=== PATIENT | male | born 1975 | race Caucasian/White ===

== ENCOUNTER 2024-06-10 23:44 | Emergency (ER) | payer SELFPAY ==
[~2024-06-10] VITALS: Ht 165.1 cm; Wt 90.7 kg
[2024-06-11 01:02] LABS: BASOPHILS % 0.7 % (0.0-2.0); HEMATOCRIT. 46.9 % (42.0-52.0); HEMOGLOBIN. 15.5 g/dL (14.0-18.0); LYMPHOCYTES % 16.5 % (20.0-50.0); MEAN CORPUSCULAR HEMOGLOBIN 27.5 pg (28.0-32.0); MEAN CORPUSCULAR VOLUME 83.3 fL (80.0-94.0); MEAN PLATELET VOLUME 8.7 fl (7.4-10.4); MONOCYTES % 7.5 % (2.0-8.0); NEUTROPHILS % 72.3 % (40.0-76.0); PLATELET 321 x1000/uL (130-400); RED BLOOD CELL COUNT 5.63 mill/uL (4.7-6.1); WHITE BLOOD COUNT 8.9 x1000/uL (4.5-11.0)
[2024-06-11 01:09] LABS: CHLORIDE 102 mEq/L (98-107); POTASSIUM 3.3 mEq/L (3.5-5.1); SODIUM 140 mEq/L (136-145)
[2024-06-11 01:10] LABS: CARBON DIOXIDE 27 mEq/L (21-32)
[2024-06-11 01:11] LABS: CALCIUM 9.8 mg/dL (8.7-10.4)
[2024-06-11 01:15] LABS: CREATININE 1.1 mg/dL (0.6-1.3); GLUCOSE 164 mg/dL (70-105)
[2024-06-11 01:16] LABS: UREA NITROGEN BLOOD 15 mg/dL (9-23)
[2024-06-11 01:20] LABS: TROPONIN I HIGH SENSITIVITY 69 ng/L (3.0-53)
[2024-06-11] MEDS: ASPIRIN 325MG EC TABLET PO ONE (02:16)
[2024-06-11] MEDS ORDERED: DOCUSATE SODIUM 100MG CAPSULE PO PRN (03:00)
[2024-06-11] MEDS ORDERED: ONDANSETRON HCL 4MG/2ML INJ IV PRN (03:00)
[2024-06-11] MEDS ORDERED: IPRATROPIUM/ALBUTEROL 0.5-3(2.5)MG/3ML NEB HHN PRN (03:00)
[2024-06-11] MEDS ORDERED: NITROGLYCERIN 0.4MG TABLET SL SL PRN (03:00)
[2024-06-11] MEDS ORDERED: ACETAMINOPHEN 325MG TABLET PO PRN ×2 (03:00)
[2024-06-11] MEDS ORDERED: GUAIFENESIN 200MG/10ML SUGAR FREE UDC PO PRN (03:00)
[2024-06-11] MEDS: MORPHINE SULFATE 2 MG/ML INJ (NOT FOR IM USE) IV NR (03:00)
[2024-06-11] MEDS: POTASSIUM CHLORIDE 20MEQ TABLET SR PO NR (03:45)
[2024-06-11 03:59] LABS: PHOSPHORUS 3.2 mg/dL (2.5-4.9)
[2024-06-11] MEDS ORDERED: DEXTROSE 50% WATER 50ML SYRINGE IV PRN (04:00)
[2024-06-11] MEDS: CLONIDINE 0.1MG TABLET PO PRN (04:25)
[2024-06-11 04:26] LABS: BASOPHILS % 1.3 % (0.0-2.0); EOSINOPHILS % 3.5 % (0.0-5.0); HEMATOCRIT. 46.6 % (42.0-52.0); HEMOGLOBIN. 14.9 g/dL (14.0-18.0); MEAN CORPUSCULAR HEMOGLOBIN 26.8 pg (28.0-32.0); MEAN CORPUSCULAR HGB CONC 32.1 g/dL (31.0-37.0); MEAN CORPUSCULAR VOLUME 83.6 fL (80.0-94.0); MEAN PLATELET VOLUME 8.5 fl (7.4-10.4); MONOCYTES % 9.2 % (2.0-8.0); PLATELET 303 x1000/uL (130-400); RED BLOOD CELL COUNT 5.57 mill/uL (4.7-6.1); WHITE BLOOD COUNT 9.9 x1000/uL (4.5-11.0)
[2024-06-11 04:36] LABS: CHLORIDE 106 mEq/L (98-107); POTASSIUM 3.8 mEq/L (3.5-5.1); SODIUM 139 mEq/L (136-145)
[2024-06-11 04:37] LABS: CALCIUM 9.4 mg/dL (8.7-10.4); CARBON DIOXIDE 24 mEq/L (21-32)
[2024-06-11 04:42] LABS: CREATINE KINASE MB FRACTION 2.9 ng/mL (0.5-3.6); GLUCOSE 123 mg/dL (70-105); UREA NITROGEN BLOOD 15 mg/dL (9-23)
[2024-06-11 08:18] VITALS: PULSE 92; RESP 16; O2SAT 99
[2024-06-11] MEDS: IPRATROPIUM/ALBUTEROL 0.5-3(2.5)MG/3ML NEB HHN SCH (08:18)
[2024-06-11] MEDS: ASPIRIN 81MG EC TABLET PO SCH (08:58)
[2024-06-11] MEDS: ENOXAPARIN 30MG/0.3ML SYR SUBCUT SCH (08:59)
[2024-06-11] MEDS: BLOOD SUGAR DIAGNOSTIC STRIP TEST SCH (08:59)
[2024-06-11] MEDS: INSULIN LISPRO 100 UNITS/ML SUBCUT SCH (09:08)
[2024-06-11 10:55] VITALS: BP 132/78; PULSE 86; RESP 18; TEMP 36.72516; O2SAT 95
[2024-06-11 11:26] LABS: CLARITY URINE CLOUDY (CLEAR); COLOR URINE YELLOW (YELLOW); GLUCOSE URINE NEGATIVE (NEGATIVE); KETONES URINE NEGATIVE (NEGATIVE); LEUKOCYTE ESTERASE URINE 3+ (NEGATIVE); NITRITE URINE NEGATIVE (NEGATIVE); OCCULT BLOOD URINE 2+ (NEGATIVE); PH URINE 5.5 (4.5-8.0); PROTEIN URINE 3+ (NEGATIVE); SPECIFIC GRAVITY URINE 1.027 (1.005-1.030); UROBILINOGEN URINE 0.2 E.U./dL (0.2-1.0)
[2024-06-11 11:35] LABS: *AMPHETAMINES SCREEN URINE PRESUMPTIVE POSITIVE (NEGATIVE)
[2024-06-11 11:36] LABS: *BARBITURATES SCREEN URINE NEGATIVE (NEGATIVE); *BENZODIAZEPINES SCREEN URINE NEGATIVE (NEGATIVE); *COCAINE SCREEN URINE NEGATIVE (NEGATIVE); CANNABINOID URINE SCREEN PRESUMPTIVE POSITIVE (NEGATIVE); ECSTASY MDMA SCREEN URINE CONF.TEST INDICATED (NEGATIVE); METHADONE URINE SCREEN NEGATIVE (NEGATIVE); OPIATES URINE SCREEN PRESUMPTIVE POSITIVE (NEGATIVE); PHENCYCLIDINE URINE SCREEN NEGATIVE (NEGATIVE)
[2024-06-11 12:45] LABS: SQUAMOUS EPITHELIAL CELL URINE 1+ /lpf (RARE/1+); WBC URINE TNTC /hpf (0-2)
[2024-06-11 12:46] LABS: BACTERIA URINE 4+; RBC URINE 15-25 /hpf (0-2)
[2024-06-11] MEDS ORDERED: FAMOTIDINE 20MG TABLET PO SCH (21:00)
[2024-06-11] MEDS ORDERED: ATORVASTATIN CALCIUM 40MG TABLET PO SCH (21:00)
== END 2024-06-11 11:14 | disposition left against medical advice (07) ==
LOC: ER 23:44 → EDBEDREQ 06-11 01:47 → EDBEDREQTM 06-11 02:17 → EDBEDREQ 06-11 02:17 → ER 06-11 11:14
DX: R06.02 Shortness of breath (principal); I25.10 Atherosclerotic heart disease of native coronary artery without angina pectoris; E78.00 Pure hypercholesterolemia, unspecified; I25.2 Old myocardial infarction; Z90.49 Acquired absence of other specified parts of digestive tract
CPT/HCPCS: 36415 ×2; 93005; 99285; 80305; 80048; 81003; 82550; 82553; 83036; 83735; 84100; 85025; 87086; 84484; 71045; 94640; 96372; 96374; J1650; J1815; J2270; Z7610 ×3